=== PATIENT | female | born 1945 | race Caucasian/White ===

== ENCOUNTER → 2017-07-23 | Outpatient (CLI) | payer MEDICARE, BC ==
[~2017-07-23] MED LIST: ALBU18HF INH; CALC-332 PO; CETI-237 PO; CHOL5000 PO; CRAN500C PO; ESOM40CA PO; FLUT1DIS IH; FLUT9.9S16 NS; GABA300C10 PO; GLUC500T11 PO; JOINT RELIEF PO; KRIL1CAP PO; LISI1TAB7 PO; LORA10TA3 PO; MAGN250T8 PO; MECL12.52 PO; NAPR220C2 PO; PROP40TA PO; RALO60TA PO; TIZA4TAB PO
[2017-07-23 11:21] LABS: BASOPHILS # (AUTO) 0.07 x10^3/uL (0-0.1); BASOPHILS % (AUTO) 1 % (0-1); EOSINOPHILS # (AUTO) 0.33 x10^3/uL (0-0.4); EOSINOPHILS % (AUTO) 3 % (1-7); LYMPHOCYTES # (AUTO) 2.44 x10^3/uL (1-3.4); LYMPHOCYTES % (AUTO) 21 % (22-44); MD NO; MEAN CORPUSCULAR HEMOGLOBIN 29.3 pg (27.0-34.8); MEAN CORPUSCULAR HGB CONC 33.1 g/dL (32.4-35.8); MEAN CORPUSCULAR VOLUME 88.6 fL (80-100); MEAN PLATELET VOLUME 9.8 fL (7.4-10.4); MONOCYTES # (AUTO) 0.65 x10^3/uL (0.2-0.8); MONOCYTES % (AUTO) 6 % (2-9); NEUTROPHILS # (AUTO) 8.03 x10^3/uL (1.8-6.8); NEUTROPHILS % (AUTO) 70 % (42-75); PLATELET COUNT 341 x10^3/uL (130-400); RED BLOOD COUNT 5.08 x10^6/uL (3.82-5.3); RED CELL DISTRIBUTION WIDTH 14.7 % (9.6-15.2)
[2017-07-23 11:30] LABS: PROTHROMBIN TIME 10.3 Seconds (9.6-11.5)
[2017-07-23 11:33] LABS: ALANINE AMINOTRANSFERASE 18 U/L (12-78); ALBUMIN 3.9 g/dL (3.4-5.0); ANION GAP 9 mmol/L (5-15); CALCIUM 9.8 mg/dL (8.5-10.1); CHLORIDE 107 mmol/L (98-107); CREATININE 1.21 mg/dL (0.55-1.02)
[2017-07-23 11:36] LABS: ALKALINE PHOSPHATASE 92 U/L (45-117); BILIRUBIN,TOTAL 0.4 mg/dL (0.2-1.0); TOTAL PROTEIN 7.2 g/dL (6.4-8.2)
[2017-07-23 12:30] LABS: MICROSCOPIC NOT IND
[2017-07-23 12:59] LABS: CULTURE INDICATED? NO
== END | disposition home or self-care (01) ==
LOC: STAR 10:10
PROVIDERS: ATTEND Orthopaedic Surgery Orthopaedic Surgery of the Spine
DX: Z01.818 Encounter for other preprocedural examination (principal); M48.061 Spinal stenosis, lumbar region without neurogenic claudication
CPT/HCPCS: 36415; 71046; 80053; 81003; 85025; 85610; 85730; 93005

== ENCOUNTER 2017-08-01 05:33 | Day surgery (SDC) | payer MEDICARE, BC ==
[~2017-08-01] VITALS: Ht 162.6 cm; Wt 81.6 kg
[2017-08-01] MEDS ORDERED: LACTATED RINGERS 1,000 ML IV SCH (06:08)
[2017-08-01] MEDS ORDERED: THROMBIN 5,000 UNIT VIAL TP ONE (06:09)
[2017-08-01] MEDS ORDERED: BUPIVACAINE/PF 0.25% ONE (06:09)
[2017-08-01] MEDS ORDERED: EPINEPHRINE 1 MG/ML, 1ML ONE (06:09)
[2017-08-01] MEDS ORDERED: LIDOCAINE-MPF 1%, 2ML INFIL ONE (06:30)
[2017-08-01] MEDS ORDERED: VANCOMYCIN 1,000 MG ONE (06:31)
[2017-08-01] MEDS ORDERED: ONDANSETRON ODT 8 MG PO ONE (07:29)
[2017-08-01] MEDS ORDERED: GABAPENTIN 300 MG CAPSULE PO ONE (07:30)
[2017-08-01] MEDS ORDERED: OxyconTIN ER 20 MG TAB.ER PO ONE (07:30)
[2017-08-01] MEDS ORDERED: ACETAMINOPHEN 500 MG TABLET PO ONE (07:30)
[2017-08-01] MEDS ORDERED: GABAPENTIN 300 MG CAPSULE ONE (07:33)
[2017-08-01] MEDS ORDERED: DEXAMETHASONE 4 MG/ML, 1ML ONE (07:44)
[2017-08-01] MEDS ORDERED: CEFAZOLIN 1,000 MG ONE (07:44)
[2017-08-01] MEDS ORDERED: PHENYLEPHRINE 10 MG/ML ONE (07:44)
[2017-08-01] MEDS ORDERED: PROPOFOL 10 MG/ML, 20ML ONE (07:44)
[2017-08-01] MEDS ORDERED: ROCURONIUM 10 MG/ML,10ML ONE (07:44)
[2017-08-01] MEDS ORDERED: ALBUTEROL SULFATE 2.5 MG/3 ML NPPB PRN (09:30)
[2017-08-01] MEDS ORDERED: hydrALAzine 20 MG/ML, 1ML IV PRN (09:30)
[2017-08-01] MEDS ORDERED: morphine SULFATE 10 MG/ML, 1ML IV PRN (09:30)
[2017-08-01] MEDS ORDERED: PROMETHAZINE 25 MG/ML, 1ML IV PRN (09:30)
[2017-08-01] MEDS ORDERED: MEPERIDINE/PF 25MG/0.5ML IVPush PRN (09:30)
[2017-08-01] MEDS ORDERED: METOCLOPRAMIDE 5 MG/ML, 2ML IV PRN (09:30)
[2017-08-01] MEDS ORDERED: LABETALOL 5MG/ML, 20ML IV PRN (09:30)
[2017-08-01] MEDS ORDERED: FENTANYL PF 100 MCG/2ML ONE (10:06)
[2017-08-01] MEDS: FENTANYL PF 100 MCG/2ML IV PRN ×2 (10:07→10:24)
[2017-08-01] MEDS ORDERED: OXYcodone 5 MG/5 ML ORAL.SOL UDC ONE (10:25)
[2017-08-01] MEDS: OXYcodone 5 MG/5 ML ORAL.SOL UDC PO PRN ×2 (10:26→11:57)
[2017-08-01] MEDS ORDERED: DIAZEPAM 5 MG/ML, 2ML IV ONE (11:00)
[2017-08-01] MEDS ORDERED: DIAZEPAM 5 MG/ML, 10ML VIAL IV ONE (11:30)
[2017-08-01] MEDS ORDERED: HYDROcodone/APAP 10/325 MG TABLET ONE (15:52)
[2017-08-01] MEDS ORDERED: HYDROcodone/APAP 10/325 MG TABLET PO PRN (16:00)
== END 2017-08-01 16:20 ==
LOC: OUT 05:33
PROVIDERS: ATTEND Orthopaedic Surgery Orthopaedic Surgery of the Spine
DX: M54.16 Radiculopathy, lumbar region (principal); M48.061 Spinal stenosis, lumbar region without neurogenic claudication; J45.909 Unspecified asthma, uncomplicated; I10 Essential (primary) hypertension; K21.9 Gastro-esophageal reflux disease without esophagitis; Z90.710 Acquired absence of both cervix and uterus; Z96.651 Presence of right artificial knee joint; Z98.890 Other specified postprocedural states; Z88.1 Allergy status to other antibiotic agents; Z88.8 Allergy status to other drugs, medicaments and biological substances
CPT/HCPCS: 63047; 72100; J0171; J0690; J1100; J2250; J2370; J2704; J3010; J3360; J3370; J3490; Q0162